=== PATIENT | male | born 1955 | race Caucasian/White ===

== ENCOUNTER 2024-07-05 04:55 | Emergency (ER) | payer MEDICARE ==
[2024-07-05] MEDS ORDERED: Ketorolac Tromethamine 30 MG (1 mL) VIAL ONE (05:32)
[2024-07-05 06:18] LABS: #Basophils 0.03 10x3/uL (0.0-0.2); #Eosinphils 0.06 10x3/uL (0.0-0.5); #Monocytes 0.33 10x3/uL (0.0-1.1); #Neutrophils 3.12 10x3/uL (1.5-8.4); %Basophils 0.7 % (0.0-2.0); %Eosinophils 1.4 % (0.0-6.0); %Lymphocytes 20.1 % (18.0-47.0); %Monocytes 7.4 % (0.0-10.0); %Neutrophils 70.4 % (40.0-75.0); Hemoglobin 10.7 g/dL (13.5-17.5); Mean Corpuscular HGB CONC 34.5 g/dL (32.0-36.0); Mean Corpuscular Hemoglobin 29.6 pg (27.0-33.0); Mean Corpuscular Volume 85.6 fL (81.2-95.1); Mean Platelet Volume 8.8 fL (7.4-10.4); Platelet Count 140 10x3/uL (150-450); Red Blood Cell (RBC) Count 3.62 10x6/uL (4.32-5.72); White Blood Cell (WBC) Count 4.4 10x3/uL (3.5-10.5)
[2024-07-05 06:29] LABS: ALT (SGPT) 13 U/L (8-55); AST (SGOT) 21 U/L (5-34); Albumin 3.7 g/dL (3.4-4.8); Alkaline Phosphatase 65 U/L (40-110); Anion Gap 13 mmol/L (10-20); BUN (Urea Nitrogen) 18 mg/dL (8.4-25.7); Bilirubin, Total 0.7 mg/dL (0.2-1.2); Calc. Creatinine Clearance 0 mL/min (70-130); Calcium 9.2 mg/dL (7.8-10.44); Carbon Dioxide 25 mmol/L (23-31); Chloride 108 mmol/L (98-107); Estimated GFR 56; Globulin 2.4 g/dL (2.4-3.5); Glucose 102 mg/dL (80-115); Potassium 3.6 mmol/L (3.5-5.1); Protein, Total 6.1 g/dL (5.8-8.1); Sodium 142 mmol/L (136-145)
[2024-07-05 06:35] LABS: Troponin I Less than 0.010 ng/mL (< 0.028)
[2024-07-05] MEDS ORDERED: Metoclopramide HCl 10 MG (2 mL) VIAL ONE (07:00)
[2024-07-05] MEDS ORDERED: diphenhydrAMINE 50 MG/ML VIAL ONE (07:00)
== END 2024-07-05 08:50 | disposition home or self-care (01) ==
LOC: CSHERS 04:55
DX: R51.9 Headache, unspecified (principal); I10 Essential (primary) hypertension; E03.9 Hypothyroidism, unspecified; Z79.890 Hormone replacement therapy
CPT/HCPCS: 70450; 80053; 84484; 85025; 93005; 96374; 96375; 99284; J1200; J1885; J2765; 36415